=== PATIENT | female | born 1990 | race Caucasian/White ===

== ENCOUNTER 2016-12-28 07:30 | Emergency (ER) | payer BC, OTHER ==
[2016-12-28 07:51] VITALS: BP 110/76; PULSE 55; RESP 18; TEMP 97.7; O2SAT 97
[2016-12-28] MEDS ORDERED: CEPHALEXIN 500MG PREPACK#4 BTL TAKEHOME ONE (08:05)
[2016-12-28 08:08] LABS: COLOR ORANGE
--- NOTE | 2016-12-28 08:08 | UCPHY ---
H & P Time Seen by Provider: 12/28/16 07:46 Patient Type: New HPI/ROS: 26-year-old female presents complaining of frequent urination with burning, dysuria. She states she has frequent urinary tract infections. She denies nausea vomiting diarrhea. She denies fevers or chills Review of systems As per HPI General no fever no chills no weakness HEENT no eye pain no eye discharge. No eye redness, no sore throat Respiratory no cough, no shortness of breath Cardiac no chest pain, no peripheral edema GI no abdominal pain, no diarrhea, no constipation, no nausea, no vomiting no flank pain, no hematuria, positive dysuria Musculoskeletal no myalgias, no joint pain Heme no easy bruising, no easy bleeding Endo no polyuria, no polydipsia Skin no rashes, no pruritus Neuro no syncope, no dizziness, no headaches Psych is no suicidal ideation, no homicidal ideation Past Medical/Surgical History: UTIs Smoking Status: Never smoked Physical Exam: 26-year-old female Female alert and oriented in no acute distress nontoxic appearance, afebrile Atraumatic normocephalic Neck supple Lungs clear to auscultation bilaterally Heart regular rate and rhythm Abdomen normoactive bowel sounds soft mild suprapubic tenderness no guarding no rebound Back no CVA tenderness Extremities no cyanosis clubbing or edema Skin no rash Constitutional: Initial Vital Signs Temperature (C) 36.5 C 12/28/16 07:48 Heart Rate 55 L 12/28/16 07:48 Respiratory Rate 18 12/28/16 07:48 Blood Pressure 110/76 12/28/16 07:48 O2 Sat (%) 97 12/28/16 07:48 O2 Delivery Mode Room Air Allergies/Adverse Reactions: acetaminophen [From Tylenol] Allergy (Verified 12/28/16 07:48) Home Medications: Medication Instructions Recorded Cephalexin 500 mg PO TID #18 tablet 12/28/16 Medical Decision Making ED Course/Re-evaluation: Patient seen and evaluated for dysuria, urinary frequency. Urinalysis sent Consistent with UTI Exam benign Impression UTI Plan Cephalexin three times daily x7 days Follow-up PCP - Data Points Laboratory Results: 12/28/16 08:00 Urine Color ORANGE Urine Appearance CLEAR Urine pH 5.0 (5.0-7.5) Ur Specific [place] <= 1.005 (1.002-1.030) Urine Protein TNP Urine Ketones TNP Urine Blood TNP Urine Nitrate TNP Urine Bilirubin TNP Urine Urobilinogen TNP Ur Leukocyte Esterase TNP Urine RBC 5-10 /hpf H /hpf (0-3) Urine WBC 50-182 /hpf H /hpf (0-3) Ur Epithelial Cells 1+ /lpf /lpf (NONE-1+) Urine Bacteria 1+ /hpf H /hpf (NONE SEEN) Ur Culture Indicated? INDICATED H (NI) Urine Glucose TNP Medications Given: Discontinued Medications Cephalexin (Keflex 500 Mg Prepack#4) 1 btl TAKEHOME EDNOW ONE PRN Reason: Protocol Stop: 12/28/16 08:06 Last Admin: 12/28/16 08:15 Dose: 1 btl Departure - Departure Disposition: Home, Routine, Self-Care Clinical Impression: Urinary tract infection Condition: Good Instructions: Urinary Tract Infection in Women (ED) Referrals: [facility] [Provider Group] - As per Instructions Prescriptions: Cephalexin 500 mg PO TID #18 tablet - PQRS PQRS Measurement: na
[2016-12-28 08:22] LABS: BACTERIA 1+ /hpf (NONE SEEN); WBC,URINE 50-182 /hpf (0-3)
== END 2016-12-28 08:26 | disposition home or self-care (01) ==
LOC: CED 07:30
DX: N39.0 Urinary tract infection, site not specified (principal); Z87.440 Personal history of urinary (tract) infections
CPT/HCPCS: 81003-PO; 81015-PO; 99203-PO; G0463-PO

== ENCOUNTER 2019-01-23 18:41 | Emergency (ER) | payer OTHER ==
[2019-01-23] MEDS ORDERED: NS 1,000 ML IV ONE (19:04)
[2019-01-23] MEDS ORDERED: KETOROLAC 30 MG/1 ML SDV IVP ONE (19:24)
--- NOTE | 2019-01-23 19:29 | EDPHY ---
H & P Smoking Status: Never smoked Time Seen by Provider: 01/23/19 19:03 HPI/ROS: HPI Abdominal pelvic pain. 28-year-old female by private vehicle with her boyfriend. This patient reports that since Sunday she has had worsening suprapubic mid lower abdominal pain. Described as a cramping and burning sensation. She reports that it has worsened significantly today. It is worse with urination. She denies specifically any burning in her urethra. Her last menstrual period was about a week ago. She has had no vaginal bleeding. Denies any vaginal discharge. She has not had any back pain. She has not had a fever. Last bowel movement was yesterday. No diarrhea. No bloody or melenic stool. ROS: Constitutional: No fever, no chills. No weakness. Eyes: No discharge. No changes in vision. ENT: No sore throat. No nasal congestion or rhinorrhea. Respiratory: No cough. No shortness of breath. Cardiac: No chest pain, no palpitations. Gastrointestinal: As above, no vomiting, no diarrhea. Genitourinary: No hematuria. No dysuria or increased frequency with urination. Musculoskeletal: No back pain. No neck pain. No myalgias or arthralgias. Skin: No rashes. Neurological: No headache. No focal weakness or altered sensation. Past medical history: Pyelonephritis in the past. Otherwise no significant past medical history. Social history: Nonsmoker. Here with her boyfriend. Denies alcohol. Physical Exam: General Appearance: Alert, she appears uncomfortable but she is not in distress. This patient is responding to questions appropriately and in full sentences. This patient appears well-hydrated and well-nourished. Eyes: Pupils equal and round no pallor or injection. No lid edema, erythema or injection. Respiratory: There are no retractions, lungs are clear to auscultation with good air movement bilaterally. Cardiovascular: Regular rate and rhythm. No murmur. Gastrointestinal: Abdomen is soft with suprapubic tenderness on palpation which is mild to moderate, no masses, bowel sounds normal. No focal tenderness at McBurney's point. No Scott sign. Neurological: Motor sensory function is grossly intact. Cranial nerves are normal. Gait is normal. Skin: Warm and dry, no rashes. Musculoskeletal: Neck is supple and nontender. Extremities are symmetrical. All joints range without pain or impingement. Psychiatric: No agitation. No depression. Database: EKG: Imaging: Procedures: Emergency department course: Triage vital signs reviewed. She is afebrile. Vital signs are otherwise unremarkable. IV was placed. She was started on IV normal saline with 1 L to be given over the next hour. She does not want any narcotic pain medication but is asking for pain control. She reports having a possible allergy to a see the med if in. She has no contraindications to NSAIDs. No history of renal dysfunction or peptic ulcer disease. She will be given a 1 time dose of IV Toradol. Her presentation is consistent with a cystitis. Pelvic ultrasound to be obtained. 8:45 p.m., the patient was re-evaluated, she declined placement of an IV. She did allow for blood to be drawn. She declined pain medication and never was given Toradol. I discussed the results of her urinalysis and blood work with her and her boyfriend. Ultrasound is still pending. Her care will be turned over to Dr. Chaz Ramires at 9:00 p.m.. Differential Diagnosis: The differential diagnosis on this patient includes but is not limited to cystitis, urinary tract infection. Appendicitis, cholecystitis, constipation, volvulus, ovarian torsion, ectopic , ovarian cyst unlikely. This represents a partial list of diagnoses considered. These considerations are based on history, physical exam, past history, reassessment and diagnostic testing. (Lou Dixon) Constitutional: Initial Vital Signs Temperature (C) 36.9 C 01/23/19 18:47 Heart Rate 56 L 01/23/19 18:47 Respiratory Rate 17 01/23/19 18:47 Blood Pressure 94/66 L 01/23/19 18:47 O2 Sat (%) 98 01/23/19 18:47 O2 Delivery Mode Room Air Allergies/Adverse Reactions: acetaminophen [From Tylenol] Allergy (Verified 01/23/19 18:46) Home Medications: Medication Instructions Recorded NK [No Known Home Meds] 01/23/19 Medical Decision Making Other Provider: I received sign-out from Dr. Dixon on this patient pending pelvic ultrasound. At approximately 10:00 p.m., this was read by Dr. Anderson as negative for any acute pathology. I re-evaluated the patient who appears quite comfortable and only has mild suprapubic pain. We discussed options and I recommended CT scan of the abdomen pelvis to rule out any significant pathology. She declines this and would prefer to go home. We discussed a plan in which she will return to the emergency department tomorrow she had pain not resolve. She was refusing any medication here for pain. She is quite intelligent and understands risks involved including worsening condition and possible need for surgery. (Chaz Ramires) - Data Points Laboratory Results: Laboratory Results 01/23/19 19:30 01/23/19 19:30 01/23/19 01/23/19 01/23/19 19:30 19:30 19:30 WBC 7.11 10^3/uL 10^3/uL (3.80-9.50) RBC 4.20 10^6/uL 10^6/uL (4.18-5.33) Hgb 13.4 g/dL g/dL (12.6-16.3) Hct 39.6 % % (38.0-47.0) MCV 94.3 fL fL (81.5-99.8) MCH 31.9 pg pg (27.9-34.1) MCHC 33.8 g/dL g/dL (32.4-36.7) RDW 12.7 % % (11.5-15.2) Plt Count 214 10^3/uL 10^3/uL (150-400) MPV 10.7 fL fL (8.7-11.7) Neut % (Auto) 65.5 % % (39.3-74.2) Lymph % (Auto) 26.2 % % (15.0-45.0) Bates % (Auto) 7.2 % % (4.5-13.0) Eos % (Auto) 0.7 % % (0.6-7.6) Baso % (Auto) 0.3 % % (0.3-1.7) Nucleat RBC Rel Count 0.0 % % (0.0-0.2) Absolute Neuts (auto) 4.66 10^3/uL 10^3/uL (1.70-6.50) Absolute Lymphs (auto) 1.86 10^3/uL 10^3/uL (1.00-3.00) Absolute Monos (auto) 0.51 10^3/uL 10^3/uL (0.30-0.80) Absolute Eos (auto) 0.05 10^3/uL 10^3/uL (0.03-0.40) Absolute Basos (auto) 0.02 10^3/uL 10^3/uL (0.02-0.10) Absolute Nucleated RBC 0.00 10^3/uL 10^3/uL (0-0.01) Immature Gran % 0.1 % % (0.0-1.1) Immature Gran # 0.01 10^3/uL 10^3/uL (0.00-0.10) Sodium 132 mEq/L L mEq/L (135-145) Potassium 5.1 mEq/L mEq/L (3.5-5.2) Chloride 102 mEq/L mEq/L (97-110) Carbon Dioxide 23 mEq/l mEq/l (22-31) Anion Gap 7 mEq/L mEq/L (6-14) BUN 14 mg/dL mg/dL (7-23) Creatinine 0.8 mg/dL mg/dL (0.6-1.0) Estimated GFR > 60 Glucose 74 mg/dL mg/dL (70-100) Calcium 9.1 mg/dL mg/dL (8.5-10.4) Beta HCG, Qual NEGATIVE Specimen Hemolysis 254 Urine Color Urine Appearance Urine pH Ur Specific [place] Urine Protein Urine Ketones Urine Blood Urine Nitrate Urine Bilirubin Urine Urobilinogen Ur Leukocyte Esterase Urine RBC Urine WBC Ur Epithelial Cells Urine Mucus Urine Glucose Urine Test 01/23/19 01/23/19 18:50 18:50 WBC RBC Hgb Hct MCV MCH MCHC RDW Plt Count MPV Neut % (Auto) Lymph % (Auto) Bates % (Auto) Eos % (Auto) Baso % (Auto) Nucleat RBC Rel Count Absolute Neuts (auto) Absolute Lymphs (auto) Absolute Monos (auto) Absolute Eos (auto) Absolute Basos (auto) Absolute Nucleated RBC Immature Gran % Immature Gran # Sodium Potassium Chloride Carbon Dioxide Anion Gap BUN Creatinine Estimated GFR Glucose Calcium Beta HCG, Qual Specimen Hemolysis Urine Color PALE YELLOW Urine Appearance CLEAR Urine pH 6.0 (5.0-7.5) Ur Specific [place] 1.004 (1.002-1.030) Urine Protein NEGATIVE (NEGATIVE) Urine Ketones TRACE H (NEGATIVE) Urine Blood NEGATIVE (NEGATIVE) Urine Nitrate NEGATIVE (NEGATIVE) Urine Bilirubin NEGATIVE (NEGATIVE) Urine Urobilinogen NEGATIVE EU EU (0.2-1.0) Ur Leukocyte Esterase NEGATIVE (NEGATIVE) Urine RBC 1-3 /hpf /hpf (0-3) Urine WBC 1-3 /hpf /hpf (0-3) Ur Epithelial Cells TRACE /lpf /lpf (NONE-1+) Urine Mucus TRACE /lpf /lpf (NONE-1+) Urine Glucose NEGATIVE (NEGATIVE) Urine Test NEGATIVE Medications Given: Discontinued Medications Sodium Chloride (Ns) 1,000 mls @ 0 mls/hr IV EDNOW ONE; Wide Open PRN Reason: Protocol Stop: 01/23/19 19:05 Last Admin: 01/23/19 19:36 Dose: Not Given Ketorolac Tromethamine (Toradol) 30 mg IVP EDNOW ONE Stop: 01/23/19 19:25 Last Admin: 01/23/19 19:35 Dose: Not Given Departure - Departure Disposition: Home, Routine, Self-Care Clinical Impression: Lower abdominal pain Condition: Good Instructions: Acute Abdominal Pain (ED) Additional Instructions: Read and follow provided instructions. Return to the emergency department in 12 hr if symptoms do not improve and immediately if they worsen or he develops new symptoms. Ibuprofen dosin mg every 6 hours with meals for the next 3 days only. Take only as needed for pain. Referrals: NONE *PRIMARY CARE P,. [Primary Care Provider] - As per Instructions
[2019-01-23 19:44] LABS: PLATELET COUNT 214 10^3/uL (150-400)
[2019-01-23 22:02] VITALS: BP 97/61
== END 2019-01-23 22:32 | disposition home or self-care (01) ==
DX: R10.2 Pelvic and perineal pain (principal); E86.9 Volume depletion, unspecified